=== PATIENT | female | born 1970 | race Caucasian/White ===

== ENCOUNTER 2022-11-28 10:12 | Emergency (ER) | payer SELFPAY ==
[2022-11-28 10:26] VITALS: BP 118/65; PULSE 108; RESP 24; TEMP 36.9; O2SAT 97; BMI 23.7
--- NOTE | 2022-11-28 11:22 | ED_ITS ---
HPI - Weakness General Chief complaint: Weakness Stated complaint: GENERAL WEAKNESS Time Seen by Provider: 11/28/22 11:19 Source: patient Mode of arrival: walk-in Limitations: no limitations History of Present Illness HPI Narrative: Patient says emergency department complaining of generalized weakness. Patient states she had chills. Symptoms started this morning. She woke up with nausea and vomiting has diarrhea. She has diffuse myalgias and arthralgias. She has a runny nose nasal congestion and slight sore throat. She denies any difficulty swallowing. She denies any chest pain, shortness of breath. She denies any flank pain, hematuria, dysuria. She denies any abdominal pain. Patient states her is also sick with the same things. Patient is not vaccinated against covid:19. Related Data Home Medications Medication Instructions Recorded Confirmed alprazolam 0.5 mg tablet (Xanax) 0.5 mg PO BID 11/28/22 11/28/22 Previous Rx's Medication Instructions Recorded ondansetron HCl 4 mg tablet 4 mg PO Q6H PRN nausea and 11/28/22 vomiting #10 tabs Allergies Allergy/AdvReac Type Severity Reaction Status Date / Time codeine Allergy icthy Verified 11/28/22 10:23 Review of Systems ROS Status of ROS 10 or more systems reviewed and unremarkable except as noted in history and below [facility] Social History Smoking status: Heavy tobacco smoker Exam Narrative Exam Narrative: Nurses notes and vital signs reviewed and patient is not hypoxic. General: Nontoxic, Well-appearing and in no apparent distress. Skin: Warm, dry, no pallor noted. No Rash Head: Normocephalic, atraumatic. Neck: Supple, non-tender. Eye: Pupils are equal, round and EOMI. No scleral icterus. Ears, Nose, Mouth, and Throat: TM clear, no posterior oropharynx erythema or nasal mucosal hypertrophy, uvula is mid-line Oral mucosa is moist Cardiovascular: Regular Rate and Rhythm without murmur, gallop or rub. Respiratory: No accessory muscle use or respiratory distress. Lungs are clear to auscultation, no wheezing, rales or rhonchi Chest Wall: no tenderness Back: No midline thoracic or lumbar vertebral tenderness. No CVA tenderness Musculoskeletal: normal ROM, no calf or popliteal tenderness, no lower extremity edema/swelling GI: Abdomen is soft, non-distended. Normal bowel sounds. No masses appreciated. No tenderness to palpation. No rebound, guarding, or rigidity noted. Neurological: A&O x4. No cranial nerve dysfunction observed. No truncal ataxia. Moves all extremities. Sensation intact. Psychiatric: Cooperative and interactive. Normal mood and affect. Constitutional Vital Signs, click to edit/add: Last Vital Signs Temp 100 F 11/28/22 12:44 Pulse 98 H 11/28/22 12:44 Resp 18 11/28/22 12:44 BP 117/81 11/28/22 12:44 Pulse Ox 95 11/28/22 12:44 O2 Del Method Room Air 11/28/22 12:44 Course Vital Signs Vital signs: Vital Signs Temperature 98.4 F 11/28/22 10:26 Pulse Rate 108 H 11/28/22 10:26 Respiratory Rate 24 11/28/22 10:26 Blood Pressure 118/65 11/28/22 10:26 Pulse Oximetry 97 11/28/22 10:26 Temperature 100 F 11/28/22 12:44 Pulse Rate 98 H 11/28/22 12:44 Respiratory Rate 18 11/28/22 12:44 Blood Pressure 117/81 11/28/22 12:44 Pulse Oximetry 95 11/28/22 12:44 Oxygen Delivery Method Room Air 11/28/22 12:44 MDM - Weakness MDM Narrative Medical decision making narrative: Patient was given 1 L of normal saline, Toradol and antibiotics. Patient felt better. She was found to be covid positive. Results were discussed with patient. Advised oral hydration. She does not have any comorbidities and is not a candidate for Paxlovid. Patient is given a prescription for antiemetics, Indication is symmetric home but she is tolerating by mouth.Because quarantine and [id number] supportive care. At this time the patient is without objective evidence of an acute process requiring hospitalization or inpatient management. The patient has remained hemodynamically stable. No additional indication for emergent studies at this t radha. I answered all questions. Discussed discharge instructions including standard anticipatory guidance and what should prompt a return to the emergency department, including if they get worse are not getting better or develops any new or concerning symptoms. I've given them specific time frame in which to follow-up, and who to follow-up with. The patient demonstrates understanding. Patient is nontoxic and stable for discharge with outpatient follow-up. This note was created with the assistance of a speech recognition program. Although the intention is to generate documents that actually reflects the content of the visit, no guarantees can be provided that every mistake has been identified and corrected by editing. Differential Diagnosis Differential diagnosis: Likely dehydration Lab Data Attestation: I reviewed the patient's lab results. Labs: Lab Results 11/28/22 11/28/22 Range/Units 10:48 11:30 WBC 7.9 (4.0-11.0) 10^3/uL RBC 4.79 (4.20-5.40) 10^6/uL Hgb 14.4 (12.0-16.0) g/dL Hct 40.2 (36.0-48.0) % MCV 83.9 (81.0-99.0) fL MCH 30.1 (26.7-34.0) pg MCHC 35.8 H (29.9-35.2) g/dL RDW 11.9 (11.0-15.0) % Plt Count 149 L (150-450) 10^3/uL MPV 11.7 (9.5-13.5) fL Neut % (Auto) 87.2 H (43.0-75.0) % Lymph % (Auto) 1.8 L (20.5-60.0) % Boundary % (Auto) 9.7 (1.7-12.0) % Eos % (Auto) 0.4 L (0.9-7.0) % Baso % (Auto) 0.3 (0.2-2.0) % Neut # (Auto) 6.9 H (1.4-6.5) 10^3/uL Lymph # (Auto) 0.1 L (1.2-3.8) 10^3/uL Boundary # (Auto) 0.8 (0.3-0.8) 10^3/uL Eos # (Auto) 0.0 (0.0-0.7) 10^3/uL Baso # (Auto) 0.0 (0.0-0.1) 10^3/uL Abs Immat Gran (auto) 0.05 H (0.00-0.03) 10^3/uL Imm/Tot Granulo (auto) 0.6 H (0.0-0.5) % Sodium 137 (136-145) mmol/L Potassium 3.6 (3.5-5.1) mmol/L Chloride 104 (98-107) mmol/L Carbon Dioxide 24.2 (21.0-32.0) mmol/L Anion Gap 12.4 BUN 11.0 (7.0-18.0) mg/dL Creatinine 0.52 L (0.55-1.02) mg/dL Est GFR ( Amer) >60 (>=60) Est GFR (Non-Af Amer) >60 (>=60) BUN/Creatinine Ratio 21.2 Glucose 103 (74-106) mg/dL Calcium 9.1 (8.5-10.1) mg/dL SARS-CoV-2 (PCR) Positive A (NEGATIVE) Influenza Type A Ag Negative Influenza Type B Ag Negative Discharge Plan Discharge Chief Complaint: Weakness Clinical Impression: COVID-19, Acute viral syndrome Patient Disposition: Home, Self-Care Time of Disposition Decision: 12:23 Condition: Good Mode of Transportation: Private Vehicle Prescriptions / Home Meds: New ondansetron HCl 4 mg tablet 4 mg PO Q6H PRN (Reason: nausea and vomiting) Qty: 10 0RF No Action alprazolam [Xanax] 0.5 mg tablet 0.5 mg PO BID Instructions: Viral Syndrome (ED), How to Recover from COVID-19 at Home (ED) Stand Alone Forms: Portal Instructions Referrals: Physician,Non-Staff, MD [Primary Care Provider] - 1 week Discharge Date/Time: 11/28/22 12:46
[2022-11-28] MEDS: 0.9 % SODIUM CHLORIDE 1,000 ML 1000 ML IV (11:37)
[2022-11-28] MEDS: ONDANSETRON PF 4 MG/2 ML VIAL IV (11:38)
[2022-11-28] MEDS: KETOROLAC TROMETHAMINE 30 MG/ML VIAL IVP (11:39)
--- NOTE | 2022-11-28 11:55 | XR_ITS ---
The [address] [address] Patient Name: BRITTNEY HARGROVEER MRN: [id number] date: 1970 Sex: F Assigned Patient Location: ER Current Patient Location: ED.MAIN Accession/Order Number: [id number] Exam Date: 11/28/2022 11:45 Report Date: 11/28/2022 12:04 At the request of: MEHDI GARCIA Procedure: XR chest 1V EXAMINATION: XR chest 1V 11/28/2022 9:03 AM PDT HISTORY: fever, weakness, cough TECHNIQUE: Single frontal view of the chest acquired. COMPARISONS: Chest x-ray 07/24/2019 FINDINGS: Lines/tubes/other: None. Heart and mediastinum: The heart and the mediastinum are within normal limits for technique. Bones: No acute osseous abnormality. Lungs: The lungs are clear. There is no evidence of pneumonia or pulmonary edema. Pleura: There is no significant pleural effusion or pneumothorax. Other: None. XR/XR chest 1V IMPRESSION: No acute cardiopulmonary abnormality. Electronically authenticated by: VALERIA PANIAGUA Date: 11/28/2022 12:04
[2022-11-28 12:00] LABS: SARS-CoV-2 Ag POSITIVE (NEGATIVE)
[2022-11-28 12:01] LABS: Influenza Virus A Antigen Negative; Influenza Virus B Antigen Negative; Internal Control Within Normal Limits
[2022-11-28 12:10] LABS: Basophils Percent Auto 0.3 % (0.2-2.0); Eosinophils Percent Auto 0.4 % (0.9-7.0); Hematocrit 40.2 % (36.0-48.0); Hemoglobin 14.4 g/dL (12.0-16.0); Immature Granulocytes Abs Auto 0.05 10^3/uL (0.00-0.03); Immature Granulocytes Pct Auto 0.6 % (0.0-0.5); Lymphocytes Absolute Auto 0.1 10^3/uL (1.2-3.8); Lymphocytes Percent Auto 1.8 % (20.5-60.0); Mean Corpuscular HGB Conc 35.8 g/dL (29.9-35.2); Mean Corpuscular Hemoglobin 30.1 pg (26.7-34.0); Mean Corpuscular Volume 83.9 fL (81.0-99.0); Mean Platelet Volume 11.7 fL (9.5-13.5); Monocytes Absolute Auto 0.8 10^3/uL (0.3-0.8); Monocytes Percent Auto 9.7 % (1.7-12.0); Neutrophils Absolute Auto 6.9 10^3/uL (1.4-6.5); Neutrophils Percent Auto 87.2 % (43.0-75.0); Platelet Count 149 10^3/uL (150-450); Red Blood Count 4.79 10^6/uL (4.20-5.40); Red Cell Distribution Width 11.9 % (11.0-15.0); White Blood Count 7.9 10^3/uL (4.0-11.0)
[2022-11-28 12:23] LABS: Anion Gap 12.4; BUN Creatinine Ratio 21.2; Calcium 9.1 mg/dL (8.5-10.1); Carbon Dioxide 24.2 mmol/L (21.0-32.0); Chloride 104 mmol/L (98-107); Estimated GFR (African America >60 (>=60); Estimated GFR (Non-African Ame >60 (>=60); Glucose 103 mg/dL (74-106); Potassium 3.6 mmol/L (3.5-5.1); Sodium 137 mmol/L (136-145)
[2022-11-28 12:44] VITALS: BP 117/81; PULSE 98; RESP 18; TEMP 37.7; O2SAT 95
== END 2022-11-28 12:46 | disposition home or self-care (01) ==
PROVIDERS: Emergency Provider Emergency Medicine
DX: U07.1 COVID-19 (principal); Z28.310 Unvaccinated for COVID-19; F17.210 Nicotine dependence, cigarettes, uncomplicated
CPT/HCPCS: 36415; 71045; 80048; 85025; 87804; 87811; 96361; 96374; 96375; 99285